=== PATIENT | male | born 1935 | race Caucasian/White ===

== ENCOUNTER 2019-03-16 06:58 | Emergency (ER) | payer MEDICARE, OTHER ==
[~2019-03-16] VITALS: Ht 182.9 cm; Wt 72.7 kg
[2019-03-16 07:04] VITALS: BP 103/48
[2019-03-16] MEDS ORDERED: HYDR-3965 PO (07:26)
== END 2019-03-16 08:08 | disposition home or self-care (01) ==
LOC: ER 06:59
DX: M54.5 Low back pain (principal); G89.29 Other chronic pain; Z88.0 Allergy status to penicillin; Z79.899 Other long term (current) drug therapy
CPT/HCPCS: 72100; 99284

== ENCOUNTER 2019-06-02 08:45 | Emergency (ER) | payer MEDICARE, OTHER ==
[~2019-06-02] VITALS: Ht 177.8 cm; Wt 77.3 kg
[2019-06-02] MEDS ORDERED: CEPH250T PO (08:56)
[2019-06-02 09:14] VITALS: BP 138/66
== END 2019-06-02 10:06 | disposition home or self-care (01) ==
LOC: ER 08:45
DX: M70.21 Olecranon bursitis, right elbow (principal); G89.29 Other chronic pain; Z88.0 Allergy status to penicillin; Y93.89 Activity, other specified
CPT/HCPCS: 99283

== ENCOUNTER 2020-03-22 13:53 | Day surgery (SDC) | payer MEDICARE, OTHER ==
[2020-03-22] MEDS ORDERED: LIDOcaine 2% 5ml jelly ONE (14:18)
== END 2020-03-22 14:51 | disposition home or self-care (01) ==
LOC: WOUND CARE 13:53
PROVIDERS: ATTEND Nurse Practitioner
DX: S91.301A Unspecified open wound, right foot, initial encounter (principal); T81.33XA Disruption of traumatic injury wound repair, initial encounter; E11.22 Type 2 diabetes mellitus with diabetic chronic kidney disease; I12.0 Hypertensive chronic kidney disease with stage 5 chronic kidney disease or end stage renal disease; N18.6 End stage renal disease; E11.65 Type 2 diabetes mellitus with hyperglycemia; E11.36 Type 2 diabetes mellitus with diabetic cataract; H35.30 Unspecified macular degeneration; M19.90 Unspecified osteoarthritis, unspecified site; G89.29 Other chronic pain; H26.8 Other specified cataract; K42.9 Umbilical hernia without obstruction or gangrene; Z79.4 Long term (current) use of insulin; Z79.899 Other long term (current) drug therapy; Z98.890 Other specified postprocedural states; Z85.828 Personal history of other malignant neoplasm of skin; Z87.891 Personal history of nicotine dependence; Z99.2 Dependence on renal dialysis; X58.XXXA Exposure to other specified factors, initial encounter; Y93.89 Activity, other specified; Y92.89 Other specified places as the place of occurrence of the external cause; Y99.8 Other external cause status
CPT/HCPCS: 87070; 87075; 87077; 87102; 87186; 97597

== ENCOUNTER 2020-03-29 10:25 | Day surgery (SDC) | payer MEDICARE, OTHER ==
[2020-03-29] MEDS ORDERED: LIDOcaine 2% 5ml jelly ONE (10:59)
== END 2020-03-29 11:45 | disposition home or self-care (01) ==
LOC: WOUND CARE 10:25
PROVIDERS: ATTEND Nurse Practitioner
DX: S91.301D Unspecified open wound, right foot, subsequent encounter (principal); T81.33XD Disruption of traumatic injury wound repair, subsequent encounter; E11.22 Type 2 diabetes mellitus with diabetic chronic kidney disease; I12.0 Hypertensive chronic kidney disease with stage 5 chronic kidney disease or end stage renal disease; N18.6 End stage renal disease; E11.65 Type 2 diabetes mellitus with hyperglycemia; E11.36 Type 2 diabetes mellitus with diabetic cataract; H35.30 Unspecified macular degeneration; M19.90 Unspecified osteoarthritis, unspecified site; G89.29 Other chronic pain; H26.8 Other specified cataract; K42.9 Umbilical hernia without obstruction or gangrene; Z79.4 Long term (current) use of insulin; Z79.899 Other long term (current) drug therapy; Z98.890 Other specified postprocedural states; Z85.828 Personal history of other malignant neoplasm of skin; Z87.891 Personal history of nicotine dependence; Z99.2 Dependence on renal dialysis; X58.XXXD Exposure to other specified factors, subsequent encounter; Y83.8 Other surgical procedures as the cause of abnormal reaction of the patient, or of later complication, without mention of misadventure at the time of the procedure
CPT/HCPCS: 97597